=== PATIENT | female | born 1965 ===

== ENCOUNTER 2023-04-18 16:19 | Emergency (ER) | payer SELFPAY ==
--- NOTE | ~2023-04-18 | XR_ITS ---
EXAM: XR ankle LT min 3V DATE: 04/18/2023 20:04 HISTORY: pain, swelling . COMPARISON: X-ray left foot, same date. FINDINGS: Decreased mineralization. No fracture or dislocation. No lytic or blastic lesion. Mild deg enerative change at the tibiotalar joint and multiple midfoot joints. Moderate Achilles and plantar e nthesopathy. No erosion or periosteal change. Diffuse subcutaneous edema. IMPRESSION: No acute osseous finding in the left ankle. Reviewed, dictated and finalized at location [facility].
--- NOTE | ~2023-04-18 | XR_ITS ---
EXAM: XR foot LT min 3V DATE: 04/18/2023 17:40 HISTORY: Left foot pain, swelling post injury. Hit foot on wood. . COMPARISON: None available. FINDINGS: Decreased mineralization. No fracture or dislocation. No lytic or blastic lesion. Scattere d degenerative changes. Comminuted fracture of the proximal aspect of the proximal fifth phalange, po ssibly with healing change. No other fracture. No dislocation. No erosion or periosteal change. Foref oot soft tissue swelling and considerable diffuse subcutaneous edema. IMPRESSION: Fracture of the proximal aspect of the left fifth proximal phalange, may be chronic, kira elate for point tenderness. Reviewed, dictated and finalized at location [facility]. IMPRESSION: Fracture of the proximal aspect of the left fifth proximal phalange , may be chronic, correlate for point tenderness.
[2023-04-18 16:55] VITALS: BP 168/75; PULSE 94; RESP 16; TEMP 36.7; O2SAT 95
[2023-04-18 19:38] VITALS: BP 207/96; PULSE 94; RESP 16; TEMP 36.6; O2SAT 100
[2023-04-18 19:44] VITALS: BP 219/104
--- NOTE | 2023-04-18 19:47 | PC.NURSE ---
Was unable to palpate pulse on patient's left foot. executive staff assistant then was able to Doppler a pulse on patient's left foot.
[2023-04-18] MEDS: HYDROcodone/acetaminophen (*CRX) 5-325 MG TABLET 1 TAB PO (20:06)
[2023-04-18 20:16] LABS: Basophils Absolute Auto 0.1 K/mm3 (0.0-0.1); Basophils Percent Auto 0.8 % (0.2-1.2); Eosinophils Absolute Auto 0.1 K/mm3 (0-0.3); Eosinophils Percent Auto 1.1 % (0-4.4); Hemoglobin 12.7 g/dL (12.0-15.0); Immature Granulocyte Absolute 0.03 K/mm3 (0.00-0.031); Immature Granulocyte Percent A 0.2 % (0-0.5); Lymphocytes Percent Auto 22.8 % (18.3-44.2); Mean Corpuscular HGB Conc 31.8 g/dl (32-36); Mean Corpuscular Hemoglobin 29.6 pg (26-34); Mean Corpuscular Volume 93.2 fl (80-100); Mean Platelet Volume 9.2 fl (7.4-10.4); Monocytes Absolute Auto 0.8 K/mm3 (0.1-0.6); Monocytes Percent Auto 6.8 % (2.6-8.5); Neutrophils Absolute Auto 8.4 K/mm3 (1.3-6.7); Neutrophils Percent Auto 68.3 % (45.5-73.1); Platelet Count Result 352 k/mm3 (150-375); Red Blood Count 4.29 M/mm3 (4.2-5.4); Red Cell Distribution Width 13.4 % (11.5-14.5); White Blood Count 12.3 K/mm3 (4.5-10.0)
[2023-04-18 20:25] LABS: Alanine Aminotransferase 34 U/L (6-35); Albumin Level 4.7 g/dL (3.5-5.1); Alkaline Phosphatase 103 U/L (38-126); Anion Gap 7 mmol/L (8-16); Aspartate Amino Transferase 31 U/L (14-36); Bilirubin,Total 0.5 mg/dL (0.2-1.3); Blood Urea Nitrogen 24 mg/dL (7-17); Calcium 10.2 mg/dL (8.4-10.2); Carbon Dioxide 32 mmol/L (22-30); Chloride 102 mmol/L (98-107); Estimated CRCL calculation 94 ml/min; Estimated Glomerular Filt Rate > 60; Glucose 76 mg/dL (65-110); Potassium 3.9 mmol/L (3.4-5.0); Sodium 141 mmol/L (137-145)
[2023-04-18 20:27] LABS: Partial Thromboplastin Time 22.4 SECONDS (22.3-36.8); Prothrombin Time 13.4 Seconds (11.1-14.7)
--- NOTE | 2023-04-18 20:32 | ED.GENADULT ---
HPI - General Adult General Chief complaint: Extremity Injury, Lower Stated complaint: left foot pain Time Seen by Provider: 04/18/23 19:46 History of Present Illness HPI narrative: Patient 58-year-old female who presents the emergency department with chief complaint of left foot pain. Patient reports that several weeks ago she had an injury to her left foot and then reports that she has had stubbed her toe several more times patient reports she is seeing a foot and ankle specialist at [place] and reports that she has had a repeat x-ray but did not get the results. The patient states that she started having swelling in her foot and reports that she has swelling in her low ankle as well the patient states that she has been sleeping in a recliner and has not fully elevated her leg but has tried elevating. Related Data Allergies Allergy/AdvReac Type Severity Reaction Status Date / Time Penicillins Allergy Unknown Verified 04/18/23 17:02 Review of Systems Review of Systems: A 10 system review of systems was completed on the patient and is negative except for what is stated in the HPI. Nursing and ancillary documentation was reviewed. Exam Narrative: GENERAL: Well-appearing, well-nourished, and in no acute distress. HEAD: Normocephalic, atraumatic. EYES: PERRLA and EOMI. ENT: Nares clear, no rhinorrhea or epistaxis. Mucous membranes moist. NECK: Supple. CHEST: Clear to auscultation. No respiratory distress. HEART: Regular rate and rhythm. No murmur heard. Normal peripheral pulses. ABDOMEN: Soft, nontender, nondistended, normal active bowel sounds. EXTREMITIES: Normal range of motion. There is significant edema of the left foot there are dopplerable pulses in the extremity there is good capillary refill. There is edema of the calf on the left. SKIN: Warm, dry, no rash. NEURO: No focal deficits. Alert and oriented x3. PSYCH: Normal mood and affect. Course Vital Signs Vital signs: Vital Signs Temperature 36.7 C 04/18/23 16:55 Pulse Rate 94 04/18/23 16:55 Respiratory Rate 16 04/18/23 16:55 Blood Pressure 168/75 H 04/18/23 16:55 Pulse Oximetry 95 04/18/23 16:55 Oxygen Delivery Room Air 04/18/23 16:55 Temperature 36.6 C 04/18/23 19:38 Pulse Rate 94 04/18/23 19:38 Respiratory Rate 16 04/18/23 19:38 Blood Pressure 219/104 H 04/18/23 19:44 Pulse Oximetry 100 04/18/23 19:38 Oxygen Delivery Room Air 04/18/23 16:55 Medical Decision Making [facility] Narrative Medical decision making narrative: Differential diagnosis includes fracture, DVT, dependent edema Laboratory studies were obtained on the patient which showed normal CBC normal electrolytes normal renal function D-dimer was negative Plain film x-rays of the left ankle and foot showed no new acute fractures there was a Fracture of the proximal aspect of the left fifth proximal phalange, may be chronic Due to the D-dimer being negative the patient will be just ordered a venous duplex without having to do blood thinners. Vital Signs Vital Signs: Vital Signs Temperature 36.7 C 04/18/23 16:55 Pulse Rate 94 04/18/23 16:55 Respiratory Rate 16 04/18/23 16:55 Blood Pressure 168/75 H 04/18/23 16:55 Pulse Oximetry 95 04/18/23 16:55 Oxygen Delivery Room Air 04/18/23 16:55 Temperature 36.6 C 04/18/23 19:38 Pulse Rate 94 04/18/23 19:38 Respiratory Rate 16 04/18/23 19:38 Blood Pressure 219/104 H 04/18/23 19:44 Pulse Oximetry 100 04/18/23 19:38 Oxygen Delivery Room Air 04/18/23 16:55 Lab Data 04/18/23 20:10 04/18/23 20:10 Labs: Lab Results 04/18/23 Range/Units 20:10 WBC 12.3 H (4.5-10.0) K/mm3 RBC 4.29 (4.2-5.4) M/mm3 Hgb 12.7 (12.0-15.0) g/dL Hct 40.0 (37.0-47.0) % MCV 93.2 (80-100) fl MCH 29.6 (26-34) pg MCHC 31.8 L (32-36) g/dl RDW 13.4 (11.5-14.5) % Plt Count 352 (150-375) k/mm3 MPV 9.2 (7.4-10.4) f
[2023-04-18 20:49] LABS: D Dimer 0.41 ug/mL (<0.48)
[2023-04-18 21:22] VITALS: BP 178/85; PULSE 75; RESP 15; TEMP 36.7; O2SAT 99
== END 2023-04-18 21:23 | disposition home or self-care (01) ==
PROVIDERS: Emergency Provider Emergency Medicine
DX: S92.512A Displaced fracture of proximal phalanx of left lesser toe(s), initial encounter for closed fracture (principal); R60.0 Localized edema; W22.8XXA Striking against or struck by other objects, initial encounter
CPT/HCPCS: 36415; 73610; 73630; 80053; 85025; 85380; 85610; 85730; 99283; A9270

== ENCOUNTER 2023-04-19 07:11 | Outpatient (CLI) | payer OTHER, SELFPAY ==
--- NOTE | ~2023-04-19 | US_ITS ---
US venous doppler [facility] DATE: 04/19/2023 08:05 INDICATION: Ankle and foot swelling. TECHNIQUE: Real-time and color flow imaging and Doppler analysis of the veins of the left lower extre mity COMPARISON: None FINDINGS: There is spontaneous and phasic flow and normal augmentation and color flow signal and norm al compression of the deep veins of the left lower extremity. IMPRESSION: No evidence of deep venous thrombosis of left leg Reviewed, dictated and finalized at [facility]. Reviewed, dictated and finalized at location [facility].
== END 2023-04-19 07:12 | disposition home or self-care (01) ==
PROVIDERS: PCP Nurse Practitioner Family; Visit Provider Nurse Practitioner Family
DX: M79.89 Other specified soft tissue disorders (principal)
CPT/HCPCS: 93971